=== PATIENT | female | born 1950 | race Caucasian/White ===

== ENCOUNTER 2016-09-28 05:22 | Emergency (ER) | payer OTHER, MEDICAID ==
[2016-09-28 05:30] VITALS: BP 162/88; TEMP 97.7
--- NOTE | 2016-09-28 05:39 | EDPHY ---
H & P Stated Complaint: Anxiety attack HPI/ROS: HPI CHIEF COMPLAINT: Anxiety, panic attack, Klonopin withdrawl HISTORY OF PRESENT ILLNESS: This patient very pleasant 65-year-old female significant past medical history for panic attacks and anxiety has been on Klonopin for year 1 mg dose, she has been out of the medication for 5 days in been going to worsening anxiety and panic attacks at home. She presents to the emergency room feeling very anxious and having a panic attack. She states she may be withdrawing from Klonopin as she has not had this medication in 5 days. She did try to get a refill however they told her it was too early as she is not due for refill. She tells me she may have been taking more than what she is prescribed. She now feels very anxious. She presents emergency room by private vehicle feeling very anxious and palpitations. Past Medical History: Anxiety, panic attacks, depression Past Surgical History: no recent pertinent surgery Social History: Denies daily use of drugs alcohol tobacco products Family History: Noncontributory ROS REVIEW OF SYSTEMS: A comprehensive 10 point review of systems is otherwise negative aside from elements mentioned in the history of present illness. Exam Constitutional anxious appearing,triage nursing summary reviewed, vital signs reviewed, awake/alert. Eyes normal conjunctivae and sclera, EOMI, PERRLA. HENT normal inspection, atraumatic, moist mucus membranes, no epistaxis, neck supple/ no meningismus, no raccoon eyes. Respiratory clear to auscultation bilaterally, normal breath sounds, no respiratory distress, no wheezing. Cardiovascular rate normal, regular rhythm, no murmur, no edema, distal pulses normal. Gastrointestinal soft, non-tender, no rebound, no guarding, normal bowel sounds, no distension, no pulsatile mass. Genitourinary no CVA tenderness. Musculoskeletal no midline vertebral tenderness, full range of motion, no calf swelling, no tenderness of extremities, no meningismus, good pulses, neurovascularly intact. Skin pink, warm, & dry, no rash, skin atraumatic. Neurologic awake, alert and oriented x 3, AAOx3, moves all 4 extremities equally, motor intact, sensory intact, CN II-XII intact, normal cerebellar, normal vision, normal speech. Psychiatric anxious, tearful Heme/Lymph/Immune no lymphadenopathy. Differential Diagnosis: Includes but is not limited to in a particular order, acute anxiety attack, panic attack, Klonopin withdrawal, benzo withdrawal Medical Decision Making: This patient be placed on cardiac lead to evaluate her heart rate, she will have an EKG she is not having any chest pain however does feel palpitations with anxiety, also be given 5 mg p.o. Valium. Re-evaluation: EKG interpretation by me on record in [employer] system. Impression time of EKG 6:06 a.m., this is sinus rhythm rate of 74 I do not appreciate acute ischemic changes or signs of arrhythmia. 0624: re-examination at this time this patient feels much better. She denies chest pain or shortness of breath she denies feeling any further anxious she did receive 5 mg p.o. Valium. She is requesting be discharged home. I will give her a very limited supply of Valium. She understands follow-up with her primary care doctor. Source: Patient - Personal History Current Tetanus/Diphtheria Vaccine: Yes Current Tetanus Diphtheria and Acellular Pertussis (TDAP): Yes - Medical/Surgical History Hx Asthma: No Hx Chronic Respiratory Disease: No Hx Diabetes: No Hx Cardiac Disease: No Hx Renal Disease: No Hx Cirrhosis: No Hx Alcoholism: No Hx HIV/AIDS: No Hx Splenectomy or Spleen Trauma: No Other PMH: pmh- PTSD, OCD, pre-diabetic, kidney stones - Social History Smoking Status: Never smoked Constitutional: Initial Vital Signs Temperature (C) 36.5 C 09/28/16 05:28 Heart Rate 96 09/28/16 05:28 Respiratory Rate 20 09/28/16 05:28 Blood Pressure 162/88 H 09/28/16 05:28 O2 Sat (%) 99 09/28/16 05:28 O2 Delivery Mode Room Air Allergies/Adverse Reactions: No Known Allergies Allergy (Verified 09/28/16 05:27) Home Medications: Medication Instructions Recorded Acetaminophen [Tylenol] 500 mg PO QID PRN 02/03/16 Cholecalciferol Vit D3 [Vitamin D3 2,000 units PO DAILY 02/03/16 2000 units tab (OTC)] Naproxen Na-Diphenhydramin HCl 1 each PO HS 02/03/16 [Aleve Pm Caplet] Ranitidine HCl 300 mg PO DAILY PRN 02/03/16 clonazePAM [KlonOPIN] 1 mg PO TID PRN 02/03/16 Metformin HCl 06/08/16 clonazePAM [klonoPIN (*)] 1 mg PO HS PRN #2 tab 06/08/16 Diazepam [Valium 5 MG (*)] 5 mg PO BID PRN #7 tab 09/28/16 Medical Decision Making - Data Points Medications Given: Discontinued Medications Diazepam (Valium) 5 mg PO EDNOW ONE Stop: 09/28/16 05:47 Last Admin: 09/28/16 05:53 Dose: 5 mg Departure - Departure Disposition: Home, Routine, Self-Care Clinical Impression: Anxiety Condition: Fair Instructions: Anxiety (ED) Additional Instructions: 1. Please follow up with your primary care doctor. 2. Return to the emergency room if you have any worsening symptoms questions or concerns. 3. I have written you very limited supply of Valium. Do not take more than is prescribed do not mix this with her Klonopin. Once again Klonopin filled please stop taking the Valium Referrals: Yong Squires MD [Primary Care Provider] - As per Instructions Prescriptions: Diazepam [Valium 5 MG (*)] 5 mg PO BID PRN #7 tab PRN Reason: Spasms
[2016-09-28] MEDS ORDERED: DIAZEPAM 5 MG TAB PO ONE (05:46)
--- NOTE | 2016-09-28 06:10 | CPEKG ---
Heart Rate: 74 RR Interval: 811 P-R Interval: 176 QRSD Interval: 92 QT Interval: 372 QTC Interval: 413 P [place]: 40 QRS [place]: 25 T Wave [place]: 16 EKG Severity - BORDERLINE ECG - EKG Impression: SINUS RHYTHM EKG Impression: BORDERLINE T WAVE ABNORMALITIES Electronically Signed By: Babatunde Moreno 29-Sep-2016 12:17:35
[2016-09-28 06:42] VITALS: PULSE 82; RESP 16; O2SAT 95
== END 2016-09-28 06:30 | disposition home or self-care (01) ==
DX: F41.9 Anxiety disorder, unspecified (principal)

== ENCOUNTER 2016-11-12 09:19 | Emergency (ER) | payer OTHER, MEDICAID ==
[2016-11-12 09:26] VITALS: BP 142/78; PULSE 79; RESP 16; TEMP 97.5; O2SAT 95
--- NOTE | 2016-11-12 09:46 | EDPHY ---
H & P Stated Complaint: stomach cramps, anxiety, headache, nausea x 2-3 weeks Time Seen by Provider: 11/12/16 09:27 HPI/ROS: CHIEF COMPLAINT: "I want to be tested because I think neighbors are poisoning me" HISTORY OF PRESENT ILLNESS: 66-year-old female history of bipolar disorder arrives via private vehicle requesting to be tested for poisons believing that her neighbors are poisoning her. She describes her current living situation, states that the neighbors [place] the [place] are [place] marijuana, she has been in contact with the [employer] [employer] [facility] about this. States that for several months she has been experiencing intermittent abdominal cramping, intermittent nausea, intermittent headaches. Currently asymptomatic. PRIMARY CARE PROVIDER: Dr. Yong Squires REVIEW OF SYSTEMS: A ten point review of systems was performed and is negative with the exception of the items mentioned in the HPI PAST MEDICAL & SURGICAL HISTORY: Bipolar disorder SOCIAL HISTORY: denies alcohol drug or tobacco use PHYSICAL EXAM (Prior to examination, patient consented to physical exam, hands were washed and my usual and customary physical exam procedures followed) 1) GENERAL: Well-developed, well-nourished, alert and oriented. Appears to be in no acute distress. 2) HEAD: Normocephalic, atraumatic 3) HEENT: Pupils equal, round, reactive to light bilaterally. Sclera anicteric. Nasopharynx, oropharynx, clear, no lesions. Ears bilaterally with normal tympanic membranes. 4) NECK: Full range of motion, no meningeal signs. 5) LUNGS: Clear auscultation bilaterally, no wheezes, no rhonchi, no retractions. 6) HEART: Regular rate and rhythm, no murmur, no heave, no gallop. 7) ABDOMEN: No guarding, no rebound, no focal tenderness, negative McBurney's, negative Mondragon's, negative Rovsing's, negative peritoneal sign, 8) MUSCULOSKELETAL: No peripheral edema or discoloration. 9) BACK: No CVA tenderness. 10) SKIN: No rash, no petechiae. 11) Psychiatric: Patient is oriented X 3, there is no agitation. DIFFERENTIAL DIAGNOSIS: no particular include but limited to intoxicants use, bipolar disorder, wilfredo - Personal History Current Tetanus/Diphtheria Vaccine: Unsure Current Tetanus Diphtheria and Acellular Pertussis (TDAP): Unsure - Medical/Surgical History Hx Asthma: No Hx Chronic Respiratory Disease: No Hx Diabetes: No Hx Cardiac Disease: No Hx Renal Disease: No Hx Cirrhosis: No Hx Alcoholism: No Hx HIV/AIDS: No Hx Splenectomy or Spleen Trauma: No Other PMH: pmh- PTSD, OCD, kidney stones. (not diabetic--takes metformin for : "weight loss") - Social History Smoking Status: Never smoked Constitutional: Initial Vital Signs Temperature (C) 36.4 C 11/12/16 09:24 Heart Rate 79 11/12/16 09:24 Respiratory Rate 16 11/12/16 09:24 Blood Pressure 142/78 H 11/12/16 09:24 O2 Sat (%) 95 11/12/16 09:24 O2 Delivery Mode Room Air Allergies/Adverse Reactions: No Known Allergies Allergy (Verified 09/28/16 05:27) Home Medications: Medication Instructions Recorded Acetaminophen [Tylenol] 500 mg PO QID PRN 02/03/16 Cholecalciferol Vit D3 [Vitamin D3 2,000 units PO DAILY 02/03/16 2000 units tab (OTC)] Naproxen Sod/Diphenhydramine 1 each PO HS 02/03/16 [Aleve Pm Caplet] Ranitidine HCl 300 mg PO DAILY PRN 02/03/16 Metformin HCl 06/08/16 Diazepam [Valium 5 MG (*)] 5 mg PO BID PRN #7 tab 09/28/16 Medical Decision Making ED Course/Re-evaluation: 10:00 a.m.: I have discussed with the patient her urine toxicology results which she requested. Positive for opiates and benzodiazepines. She denies suicidal homicidal ideation, she is alert oriented person place time events. I do not think the patient is in immediate danger to herself and/or others. Do not think she meets criteria for mental health hold. She has an appointment with her primary care provider on Monday (today is Monday). I have emphasized with her ongoing life situation, recommend that if she does develop concerns for her safety, if she has thoughts of hurting herself or others, she needs to call 911 immediately. She is agreeable with this plan. - Data Points Laboratory Results: 11/12/16 09:51 Urine Opiates Screen NON-NEGATIVE H (NEGATIVE) Urine Barbiturates NEGATIVE (NEGATIVE) Ur Phencyclidine Scrn NEGATIVE (NEGATIVE) Ur Amphetamine Screen NEGATIVE (NEGATIVE) U Benzodiazepines Scrn NON-NEGATIVE H (NEGATIVE) Urine Cocaine Screen NEGATIVE (NEGATIVE) U Marijuana (THC) Screen NEGATIVE (NEGATIVE) Departure - Departure Disposition: Home, Routine, Self-Care Clinical Impression: Bipolar disorder Qualifiers: Active/Remission status: remission status unspecified Qualified Code(s): F31.9 - Bipolar disorder, unspecified Condition: Good Instructions: Bipolar Disorder (ED) Additional Instructions: We will call you with the results of your urine toxicology testing. Call 911 if you develop thoughts of hurting herself or others or if you feel you are in danger Referrals: Yong Squires MD [Primary Care Provider] - 11/15/16 (Keep your appointment with Dr. Yong Squires this Monday)
== END 2016-11-12 10:14 | disposition home or self-care (01) ==
DX: F31.9 Bipolar disorder, unspecified (principal)
CPT/HCPCS: 80305

== ENCOUNTER 2016-11-16 11:49 | Emergency (ER) | payer OTHER, MEDICAID ==
[2016-11-16 11:55] VITALS: TEMP 97.5
[2016-11-16 13:14] VITALS: PULSE 78; RESP 16
--- NOTE | 2016-11-16 13:56 | EDPHY ---
H & P Stated Complaint: SEEN SAT FOR SAME/BLURRY VISION/OFF BALANCE(THINKS SHE IS BEING DRUGGED) Time Seen by Provider: 11/16/16 12:24 HPI/ROS: CHIEF COMPLAINT: Blurred vision, fell yesterday, think she is being drugged HISTORY OF PRESENT ILLNESS: This is a 66-year-old female with a history of manic depression who is currently taking Valium after recently weaning off of Klonopin. She presents to the emergency department for the 2nd time within 1 week complaining that the neighbors across the [place] are drugging her. A urine drug screen was done at her last visit and it was positive for benzodiazepines and opiates. She does not take opiates and is insistent about this. She saw her primary care physician on Monday but was feeling relatively well on that day so no further evaluation was done. She comes in today because she states that her vision was blurred this morning, making it difficult for her to read a menu in a restaurant. REVIEW OF SYSTEMS: A ten point review of systems was performed and is negative with the exception of the items mentioned in the HPI. Source: Patient - Personal History Current Tetanus/Diphtheria Vaccine: Yes - Medical/Surgical History Hx Asthma: No Hx Chronic Respiratory Disease: No Hx Diabetes: No Hx Cardiac Disease: No Hx Renal Disease: No Hx Cirrhosis: No Hx Alcoholism: No Hx HIV/AIDS: No Hx Splenectomy or Spleen Trauma: No Other PMH: pmh- PTSD, OCD, kidney stones. (not diabetic--takes metformin for : "weight loss") - Social History Smoking Status: Never smoked Additional Social History: Lives alone in an apartment. Denies the use of alcohol, cigarettes, or illicit drugs. - Physical Exam Exam: General Appearance: Alert. Vital signs reviewed. Eyes: Pupils equal and round, no conjunctival injection, no discharge. Anicteric. ENT, Mouth: Mucous membranes are moist, no oropharyngeal erythema or edema. Neck: No lymphadenopathy, supple. Respiratory: Lungs are clear to auscultation; no wheezes, rales, or rhonchi. Cardiovascular: Regular rate and rhythm; no murmur, rub, or gallop. Gastrointestinal: Abdomen is soft and nontender. Skin: Warm and dry, no rashes on exposed skin, normal color. Extremities: No lower extremity edema, no calf tenderness or swelling. Neurological: Alert and oriented. Moving all four extremities easily and equally. Cranial nerves II through XII are examined and are intact (visual acuity reviewed). Strength is 5 over 5 bilaterally with testing of all major motor groups. Psychiatric: Somewhat pressured tangential speech. Constitutional: Initial Vital Signs Temperature (C) 36.4 C 11/16/16 11:53 Heart Rate 84 11/16/16 11:53 Respiratory Rate 20 11/16/16 11:53 Blood Pressure 128/75 H 11/16/16 11:53 O2 Sat (%) 96 11/16/16 11:53 O2 Delivery Mode Room Air Allergies/Adverse Reactions: No Known Allergies Allergy (Verified 11/16/16 11:52) Home Medications: Medication Instructions Recorded Acetaminophen [Tylenol] 500 mg PO QID PRN 02/03/16 Cholecalciferol Vit D3 [Vitamin D3 2,000 units PO DAILY 02/03/16 2000 units tab (OTC)] Naproxen Sod/Diphenhydramine 1 each PO HS 02/03/16 [Aleve Pm Caplet] Ranitidine HCl 300 mg PO DAILY PRN 02/03/16 Metformin HCl 06/08/16 Diazepam [Valium 5 MG (*)] 5 mg PO BID PRN #7 tab 09/28/16 KLONOPIN 11/16/16 Medical Decision Making ED Course/Re-evaluation: 2nd emergency department visit for this patient has a history of PTSD. She complains of blurred vision and balance difficulty. Her gait is normal. Her neurologic exam is within normal limits. I have not found objective evidence of a vision problem. Her major complaint is that she is being poisoned by neighbors in her apartment building. She had this same complaint at an earlier visit. She tells me that she has seen her primary care provider. She has an appointment with her psychiatrist and her primary care provider within the week. I do not think that she has a physical problem that is causing her to be off balance or have blurred vision. During her previous visit she had a urine drug screen done, at her request, and it was positive for benzodiazepines and opiates. She is prescribed benzodiazepines. She is very concerned about the positive opiate test is adamant about being retested. I have explained to her that opiates can be present in the urine for 3-4 days and that today's test will not really give any helpful information. However, she cannot be dissuaded. Urine drug screen was done again and is again positive for opiates and benzodiazepines. She is adamant that this is the result of poisoning by her neighbors. I think that she is slightly manic and paranoid but do not feel that she qualifies for a 72 hour hold; I do not think that she is presently a danger to herself or to others. I have strongly encouraged her to see her psychiatrist. Differential Diagnosis: I considered a differential diagnosis that includes but is not limited to use of illicit substances or medications prescribed for someone other than the patient, wilfredo, paranoia, and exacerbation of bipolar disease. Departure - Departure Disposition: Home, Routine, Self-Care Clinical Impression: Positive urine drug screen Condition: Good Instructions: Bipolar Disorder (ED) Additional Instructions: As you know, your urine drug screen today is positive for benzodiazepines and opiates. As we discussed, opiate skin remain in the urine for 3 or 4 days. I do not have an explanation for these findings. I recommend that you follow up with Dr. Squires and your psychiatrist/therapist. Referrals: Yong Squires MD [Primary Care Provider] - As per Instructions
[2016-11-16 14:51] VITALS: BP 134/76; O2SAT 98
== END 2016-11-16 14:54 | disposition home or self-care (01) ==
DX: R82.5 Elevated urine levels of drugs, medicaments and biological substances (principal)
CPT/HCPCS: 80305

== ENCOUNTER 2017-10-18 15:29 | Emergency (ER) | payer OTHER, MEDICAID ==
[2017-10-18 15:46] VITALS: BP 121/69; PULSE 88; RESP 18; TEMP 98.1; O2SAT 94
--- NOTE | 2017-10-18 16:09 | EDPHY ---
H & P Time Seen by Provider: 10/18/17 15:59 HPI/ROS: CHIEF COMPLAINT: Left elbow pain HISTORY OF PRESENT ILLNESS: The patient is a 67-year-old female who presents emergency department with left elbow pain. Yesterday she was at the gas station when she tripped over the hose. She is not sure how she landed. She now has significant pain in her left elbow. She states she has some numbness that extends down to her left hand. She denies any shoulder pain. She did not strike her head or lose consciousness. The patient went to [facility] yesterday via ambulance. She states she had a difficult experience there. She is given pain medication x-ray was performed. However the told her that the x-ray"was not good."They discharged her home with Percocet and no support of her elbow. REVIEW OF SYSTEMS: My complete review of systems is negative except as mentioned in the HPI. Past Medical/Surgical History: Includes PTSD, OCD, kidney stones Social history: The patient does not smoke Smoking Status: Never smoked Physical Exam: 36.7, 121/69, 88, 18, 94% on room air General Appearance: Alert and no distress. Head: Pupils equal. Normal. No visible signs of trauma Neck: No spinal tenderness. Nexus negative. Respiratory: No respiratory distress. Cardiac: regular rate and rhythm. Extremities: The patient has noted swelling around her left elbow. There is diffuse tenderness around the elbow but this seems to be most focal over the radial head. She is neurovascular intact distally. Skin: No rashes or lesions. Neuro: Alert. Normal mood and affect. Constitutional: Initial Vital Signs Temperature (C) 36.7 C 10/18/17 15:44 Heart Rate 88 10/18/17 15:44 Respiratory Rate 18 10/18/17 15:44 Blood Pressure 121/69 H 10/18/17 15:44 O2 Sat (%) 94 10/18/17 15:44 O2 Delivery Mode Room Air Allergies/Adverse Reactions: No Known Allergies Allergy (Verified 10/18/17 15:43) Home Medications: Medication Instructions Recorded Acetaminophen [Tylenol] 500 mg PO QID PRN 02/03/16 Cholecalciferol Vit D3 [Vitamin D3 2,000 units PO DAILY 02/03/16 2000 units tab (OTC)] Ranitidine HCl 300 mg PO DAILY PRN 02/03/16 KLONOPIN 11/16/16 oxyCODONE/APAP 5/325 [Percocet 1 - 2 tab PO Q4PRN PRN #11 tab 10/18/17 5/325 (*)] Medical Decision Making - Diagnostics Imaging Results: Imaging Impressions Elbow X-Ray 10/18/17 16:19 Impression: 1. Chip or avulsion fracture along the lateral distal humeral epicondyle. This could be associated with the lateral collateral ligament insertion. ED Course/Re-evaluation: In the emergency department I discussed possible etiologies with the patient. I answered all her questions. An x-ray of her left elbow was ordered. Left elbow x-ray: The patient has the avulsion fracture along the lateral distal humeral epicondyle. This could be associated with the lateral collateral ligament insertion. I discussed the results with the patient. I answered all her questions. She was placed in a shoulder sling. She is given follow-up with Orthopedics. She states she is a [facility] patient. I informed that she could follow up with our orthopedic surgeon but that her insurance may require her to follow up with [facility] orthopedist. She is given warnings prior to leaving. She will return with worsening symptoms. Differential Diagnosis: My differential includes but is not limited to fracture, dislocation, sprain, strain, contusion, compartment syndrome Departure - Departure Disposition: Home, Routine, Self-Care Clinical Impression: Elbow fracture, left Qualifiers: Encounter type: initial encounter Fracture type: closed Qualified Code(s): S42.402A - Unspecified fracture of lower end of left humerus, initial encounter for closed fracture Condition: Good Instructions: Elbow Fracture (ED) Additional Instructions: You have a small avulsion fracture on the lateral aspect of your humeral epicondyle. Use your sling. You need close follow-up with Orthopedics. Referrals: Roel Castañeda MD [Medical Doctor] - 5-7 days, call for appt. Prescriptions: oxyCODONE/APAP 5/325 [Percocet 5/325 (*)] 1 - 2 tab PO Q4PRN PRN #11 tab PRN Reason: For Moderate To Severe Pain
[2017-10-18] MEDS ORDERED: IBUPROFEN 600 MG TAB PO ONE (17:33)
== END 2017-10-18 17:35 | disposition home or self-care (01) ==
DX: S42.432A Displaced fracture (avulsion) of lateral epicondyle of left humerus, initial encounter for closed fracture (principal); W18.40XA Slipping, tripping and stumbling without falling, unspecified, initial encounter
CPT/HCPCS: 73080; 99283; A4565

== ENCOUNTER 2017-11-03 13:35 | Emergency (ER) | payer OTHER, MEDICAID ==
--- NOTE | 2017-11-03 13:37 | EDPHY ---
H & P Source: Patient, Police, Old records - Medical/Surgical History Hx Asthma: No Hx Chronic Respiratory Disease: No Hx Diabetes: No Hx Cardiac Disease: No Hx Renal Disease: No Hx Cirrhosis: No Hx Alcoholism: No Hx HIV/AIDS: No Hx Splenectomy or Spleen Trauma: No Other PMH: pmh- PTSD, OCD, kidney stones. (not diabetic--takes metformin for : "weight loss") - Social History Smoking Status: Never smoked Time Seen by Provider: 11/03/17 13:36 HPI/ROS: HPI: This is a 67-year-old female who presents with Chief Complaint: Manic episode Location: psych Quality: Manic episode Duration: Unknown Signs and Symptoms: no auditory and visual command hallucinations, no suicidal ideation with a plan, no homicidal ideation, + paranoid Timing: Acute on chronic Severity: Moderate to severe Context: Patient has a history of bipolar disorder presents via police on M1 hold as they were called to the local hotel for patient acting delusional, paranoid and erratically. Patient believes that people are out to get her. She admits that she has not taking her Tegretol unknown dose in greater than 2 weeks as she"ran out" she denies homicidal ideation, suicidal ideation, hallucinations. She reports that she has been spending money excessively. Denies illegal drug use. Please reports that they responded from the hotel who called them after she refused to leave at check out. Patient was talking to her hand and miss identifying herself. Patient believes that she had been at a hotel 10 days but was actually 2 days. She reports that she took 2 bottles of Motrin and 1 bottle of Aleve. She reports that she"slept for long time." Dog that was with her the hotel sent to the [facility]. Modifying Factors: None Comment: ROS: see HPI Constitutional: No fever, no chills, no weight loss Eyes: No blurred vision Respiratory: No shortness of breath, no cough Cardiovascular: No chest pain Gastrointestinal: No nausea, no vomiting, no diarrhea Genitourinary: No dysuria Extremities: No myalgias Neurologic: No weakness, no numbness Skin: No rashes Hematologic: No bruising, no bleeding MEDICAL/SURGICAL/SOCIAL HISTORY: Medical history: pmh- bipolar disorder mixed type; PTSD, OCD, kidney stones (not diabetic--takes metformin for :"weight loss") Surgical history: Denies Social history: Disable. CONSTITUTIONAL: Well-appearing adult white female; cooperative and talkative; awake and alert, no obvious distress HEENT: Atraumatic and normocephalic, PERRL, EOMI. Tympanic membranes clear. Oropharynx clear, no exudate and moist pink mucosa. Airway patent. No lymphadenopathy. No meningismus. Cardiovascular: Normal S1/S2, regular rate, regular rhythm, without murmur rub or gallop. PULMONARY/CHEST: Symmetrical and nontender. Clear to auscultation bilaterally. Good air movement. No accessory muscle usage. ABDOMEN: Soft, nondistended, nontender, no rebound, no guarding, no peritoneal signs, no masses or organomegaly. No CVAT. EXTREMITIES: 2/2 pulses, strength 5/5, no deformities, no clubbing, no cyanosis or edema. NEUROLOGICAL: no focal neuro deficits. GCS 15. SKIN: Warm and dry, no erythema. no rash. Good capillary refill. PSYCH: Poor eye contact, + flight of ideas, tangential disorganized thought process, poor insight and judgment, no auditory and visual command hallucinations, no suicidal ideation with a plan, no homicidal ideation, + paranoid ([place]) Constitutional: Initial Vital Signs Temperature (C) 36.7 C 11/03/17 13:56 Heart Rate 97 11/03/17 13:56 Respiratory Rate 18 11/03/17 13:56 Blood Pressure 141/93 H 11/03/17 13:56 O2 Sat (%) 94 11/03/17 13:56 O2 Delivery Mode Room Air Allergies/Adverse Reactions: No Known Allergies Allergy (Verified 10/18/17 15:43) Home Medications: Medication Instructions Recorded Ranitidine HCl 300 mg PO BID PRN 02/03/16 Aspirin EC [Aspirin EC 81 mg (*)] 81 mg PO DAILY 11/03/17 Naproxen Sod/Diphenhydramine 1 each PO HS PRN 11/03/17 [Aleve Pm Caplet] Ziprasidone HCl [Geodon 40MG (*)] 80 mg PO HS 11/03/17 metFORMIN HCL [Glucophage 500 mg 250 mg PO BIDMEAL 11/03/17 (*)] Medical Decision Making ED Course/Re-evaluation: 1345: Agree with M1 hold as patient is gravely disabled. Start Tegretol 200 mg twice daily. Labs and UDS ordered. 1500: Reviewed labs; slightly elevated sodium noted; awaiting urine sample. 1740: End of Shift: Signed over to Dr. Bradley pending urine sample, medical clearance, mental health evaluation and disposition. Patient would greatly benefit from inpatient psychiatric treatment. This patient was seen under the supervision of my primary supervising physician. I evaluated care for this patient independently. Discussed this patient with Dr. Bradley who did not see the patient. (Jayde Johnston) I assumed care of this patient at 3:00 p.m.. She is on an M1 hold for acute wilfredo. Not taking Tegretol for over 2 weeks. Urine toxicology screen is pending. 4 p.m.-medically cleared for mental health evaluation. 9pm-mental health is looking for inpatient disposition. Signed over to Dr. Chase at 9:00 p.m. (Jaci Bradley) 2225: Patient on M1 hold for acute wilfredo. Pending placement Signed over to Dr. Batista. (Valdemar Chase) 10:30 p.m.- The patient has been accepted to [facility] by Dr. Stark. I have completed the EMTALA form. (Mirna Batista) Differential Diagnosis: Differential diagnosis includes but is not limited to schizophrenia, bipolar disorder, manic episode, delusional, functional in situational depression. (Jayde Johnston) - Data Points Laboratory Results: Laboratory Results 11/03/17 13:50 11/03/17 13:50 11/03/17 11/03/17 11/03/17 15:25 13:50 13:50 WBC 10.83 10^3/uL H 10^3/uL (3.80-9.50) RBC 4.86 10^6/uL 10^6/uL (4.18-5.33) Hgb 13.3 g/dL g/dL (12.6-16.3) Hct 42.0 % % (38.0-47.0) MCV 86.4 fL fL (81.5-99.8) MCH 27.4 pg L pg (27.9-34.1) MCHC 31.7 g/dL L g/dL (32.4-36.7) RDW 14.3 % % (11.5-15.2) Plt Count 314 10^3/uL 10^3/uL (150-400) MPV 9.0 fL fL (8.7-11.7) Neut % (Auto) 89.0 % H % (39.3-74.2) Lymph % (Auto) 7.3 % L % (15.0-45.0) [place] % (Auto) 3.0 % L % (4.5-13.0) Eos % (Auto) 0.0 % L % (0.6-7.6) Baso % (Auto) 0.3 % % (0.3-1.7) Nucleat RBC Rel Count 0.0 % % (0.0-0.2) Absolute Neuts (auto) 9.65 10^3/uL H 10^3/uL (1.70-6.50) Absolute Lymphs (auto) 0.79 10^3/uL L 10^3/uL (1.00-3.00) Absolute Monos (auto) 0.32 10^3/uL 10^3/uL (0.30-0.80) Absolute Eos (auto) 0.00 10^3/uL L 10^3/uL (0.03-0.40) Absolute Basos (auto) 0.03 10^3/uL 10^3/uL (0.02-0.10) Absolute Nucleated RBC 0.00 10^3/uL 10^3/uL (0-0.01) Immature Gran % 0.4 % % (0.0-1.1) Immature Gran # 0.04 10^3/uL 10^3/uL (0.00-0.10) Sodium 152 mEq/L H mEq/L (135-145) Potassium 3.7 mEq/L mEq/L (3.5-5.2) Chloride 112 mEq/L H mEq/L (97-110) Carbon Dioxide 21 mEq/l L mEq/l (22-31) Anion Gap 19 mEq/L H mEq/L (8-16) BUN 22 mg/dL mg/dL (7-23) Creatinine 0.9 mg/dL mg/dL (0.6-1.0) Estimated GFR > 60 Glucose 116 mg/dL H mg/dL (70-100) Calcium 10.1 mg/dL mg/dL (8.5-10.4) Urine Opiates Screen NEGATIVE (NEGATIVE) Urine Barbiturates NEGATIVE (NEGATIVE) Ur Phencyclidine Scrn NEGATIVE (NEGATIVE) Ur Amphetamine Screen NEGATIVE (NEGATIVE) U Benzodiazepines Scrn NEGATIVE (NEGATIVE) Urine Cocaine Screen NEGATIVE (NEGATIVE) U Marijuana (THC) Screen NEGATIVE (NEGATIVE) Ethyl Alcohol < 10 mg/dL mg/dL (0-10) Medications Given: Carbamazepine (Tegretol) 200 mg PO BID BIJAN Stop: 05/02/18 13:59 Last Admin: 11/03/17 22:11 Dose: 200 mg Discontinued Medications Diazepam (Valium) 5 mg PO EDNOW STA Stop: 11/03/17 21:51 Last Admin: 11/03/17 22:11 Dose: 5 mg Ranitidine HCl (Zantac) 300 mg PO EDNOW ONE Stop: 11/03/17 22:01 Last Admin: 11/03/17 22:11 Dose: 300 mg Departure - Departure Disposition: Other Psych, Not [place] Clinical Impression: Bipolar affective, manic, severe Condition: Fair Referrals: ANTONIO GONZALEZ [Primary Care Provider] - As per Instructions
[2017-11-03 14:02] LABS: PLATELET COUNT 314 10^3/uL (150-400)
[2017-11-03] MEDS: carBAMazepine 200 MG TAB PO SCH ×4 (15:03→23:49)
--- NOTE | 2017-11-03 16:59 | ASMTCMCOM ---
CM Note CM Note Notes: Pt was transported to the Emergency Department via [place] [employer] on an M1 hold today. Spoke with ANTON Mosley regarding pt and pt's dog. Per Dimitri, the pt claims her dog is a "service animal" and is needed for emotional support. Dimitri was unable to locate any paperwork indicating that the dog is indeed a service animal. Pt states that the "[employer]" issued the service paperwork. Per Dimitri, pt is currently delusional and is unable to care for herself or her dog at this time. The pt is homeless and has been staying at a local hotel. Given that the hospital staff were unable to verify the specific services provided by the dog and/or the necessary paperwork - the dog, Sheila, waldemar segal, has been temporarily placed in the care of the [place] [employer] per protocol. This CM called [facility] to verify the location and well being of Sheila. Spoke with Ashly on the Behavior and Health Team. Per Ashly, they have Sheila and will continue to provide care for him until 11/07/17. As of 11/07/17, Sheila will become the property of the [employer], if the dog has not been claimed or picked up by then. Per Ashly, the pt can provide the name and phone number of a friend to release the dog to until she is out of the hospital. CM phone number provided to Ashly for any further questions or concerns. Updates provided to [facility] and ANTON Mosley. [employer]ologneitz Jacobson #[id number] with the [place] [employer] took the dog to the [place] [employer]. Reference case # [id number]. CM available for any further issues or concerns. Date Signed: 11/03/2017 04:58 PM Electronically Signed By:Linda Dejesus RN
[2017-11-03] MEDS ORDERED: DIAZEPAM 5 MG TAB PO STA (21:50)
[2017-11-03] MEDS ORDERED: RANITIDINE SYRUP 15 MG/1 ML UDSYR PO STA (21:50)
[2017-11-03] MEDS ORDERED: RANITIDINE HCL 150 MG/10 ML UDCUP PO ONE (22:00)
[2017-11-03 23:43] VITALS: TEMP 97.9
[2017-11-04 01:21] VITALS: BP 139/87; PULSE 85; RESP 16; O2SAT 94
== END 2017-11-04 01:17 ==
LOC: EDUNIT#
DX: F31.13 Bipolar disorder, current episode manic without psychotic features, severe (principal); Z79.82 Long term (current) use of aspirin
CPT/HCPCS: 80305; G0480

== ENCOUNTER 2018-08-26 02:55 | Emergency (ER) | payer OTHER, MEDICAID ==
[2018-08-26] MEDS ORDERED: NS 1,000 ML IV ONE (03:16)
[2018-08-26] MEDS ORDERED: KETOROLAC 15 MG/1 ML SDV IVP ONE (03:16)
[2018-08-26] MEDS ORDERED: ONDANSETRON 4 MG/2 ML VIAL IVP ONE ×2 (03:16→03:47)
--- NOTE | 2018-08-26 03:17 | EDPHY ---
H & P Stated Complaint: left flank pain Time Seen by Provider: 08/26/18 03:13 HPI/ROS: Chief Complaint: Flank pain HPI: 67-year-old woman woke this morning with sudden onset of left flank pain. Patient's pain is a 10/10. Initially thought it might be urinary tract infection but now feels like prior kidney stones. Has had some nausea vomiting. No fevers or chills. No abdominal pain. No chest pain or shortness of breath. ROS: 10 systems were reviewed and were negative except those elements noted in the HPI. PMH: Kidney stones Social History: No smoking, no alcohol, no recreational drug use Family History: non-contributory Physical Exam: Gen: Awake, Alert, uncomfortable appearing HEENT: Nose: no rhinorrhea Eyes: PERRLA, EOMI Mouth: Moist mucosa Neck: Supple, no JVD Chest: nontender, lungs clear to auscultation Heart: S1, S2 normal, no murmur Abd: Soft, non-tender, no guarding Back: no CVA tenderness, no midline tenderness Ext: no edema, non-tender Skin: no rash Neuro: CN II-XII intact, Sensation grossly intact, Strength 5/5 in bilateral upper and lower extremities - Personal History Current Tetanus/Diphtheria Vaccine: Yes Current Tetanus Diphtheria and Acellular Pertussis (TDAP): Yes - Medical/Surgical History Hx Asthma: No Hx Chronic Respiratory Disease: No Hx Diabetes: No Hx Cardiac Disease: No Hx Renal Disease: No Hx Cirrhosis: No Hx Alcoholism: No Hx HIV/AIDS: No Hx Splenectomy or Spleen Trauma: No Other PMH: pmh- PTSD, OCD, kidney stones - Social History Smoking Status: Never smoked Constitutional: Initial Vital Signs Temperature (C) 36.5 C 08/26/18 03:13 Heart Rate 80 08/26/18 03:13 Respiratory Rate 18 08/26/18 03:13 Blood Pressure 157/87 H 08/26/18 03:13 O2 Sat (%) 98 08/26/18 03:13 O2 Delivery Mode Room Air Allergies/Adverse Reactions: No Known Allergies Allergy (Verified 10/18/17 15:43) Home Medications: Medication Instructions Recorded Ranitidine HCl 300 mg PO BID PRN 02/03/16 Aspirin EC [Aspirin EC 81 mg (*)] 81 mg PO DAILY 03/30/18 Valium 10 MG (*) 08/26/18 Medical Decision Making - Diagnostics Imaging Results: CT scan shows a 6 x 4 x 3 mm left UVJ stone about to enter the bladder with hydroureter and hydronephrosis. There is diverticulosis without diverticulitis. Study interpreted by Dr. Young. Imaging: Discussed imaging studies w/ call centre supervisor Radiologist ED Course/Re-evaluation: CT scan results noted. Appears to patient is about a minute we passed stone. Pain is now resolved. No nausea or vomiting. Soft benign abdomen. Will discharge with follow-up with primary care physician. - Data Points Laboratory Results: Laboratory Results 08/26/18 03:30 08/26/18 03:30 08/26/18 08/26/18 08/26/18 03:30 03:30 03:25 WBC 8.54 10^3/uL 10^3/uL (3.80-9.50) RBC 5.07 10^6/uL 10^6/uL (4.18-5.33) Hgb 14.3 g/dL g/dL (12.6-16.3) Hct 43.8 % % (38.0-47.0) MCV 86.4 fL fL (81.5-99.8) MCH 28.2 pg pg (27.9-34.1) MCHC 32.6 g/dL g/dL (32.4-36.7) RDW 13.7 % % (11.5-15.2) Plt Count 285 10^3/uL 10^3/uL (150-400) MPV 9.2 fL fL (8.7-11.7) Neut % (Auto) 51.8 % % (39.3-74.2) Lymph % (Auto) 38.5 % % (15.0-45.0) [place] % (Auto) 7.1 % % (4.5-13.0) Eos % (Auto) 1.8 % % (0.6-7.6) Baso % (Auto) 0.6 % % (0.3-1.7) Nucleat RBC Rel Count 0.0 % % (0.0-0.2) Absolute Neuts (auto) 4.42 10^3/uL 10^3/uL (1.70-6.50) Absolute Lymphs (auto) 3.29 10^3/uL H 10^3/uL (1.00-3.00) Absolute Monos (auto) 0.61 10^3/uL 10^3/uL (0.30-0.80) Absolute Eos (auto) 0.15 10^3/uL 10^3/uL (0.03-0.40) Absolute Basos (auto) 0.05 10^3/uL 10^3/uL (0.02-0.10) Absolute Nucleated RBC 0.00 10^3/uL 10^3/uL (0-0.01) Immature Gran % 0.2 % % (0.0-1.1) Immature Gran # 0.02 10^3/uL 10^3/uL (0.00-0.10) Sodium 141 mEq/L mEq/L (135-145) Potassium 4.3 mEq/L mEq/L (3.5-5.2) Chloride 110 mEq/L mEq/L (97-110) Carbon Dioxide 22 mEq/l mEq/l (22-31) Anion Gap 9 mEq/L mEq/L (6-14) BUN 23 mg/dL mg/dL (7-23) Creatinine 0.8 mg/dL mg/dL (0.6-1.0) Estimated GFR > 60 Glucose 108 mg/dL H mg/dL (70-100) Calcium 9.9 mg/dL mg/dL (8.5-10.4) Urine Color YELLOW Urine Appearance MODERATELY TURBID Urine pH 5.0 (5.0-7.5) Ur Specific [place] 1.028 (1.002-1.030) Urine Protein NEGATIVE (NEGATIVE) Urine Ketones NEGATIVE (NEGATIVE) Urine Blood NEGATIVE (NEGATIVE) Urine Nitrate NEGATIVE (NEGATIVE) Urine Bilirubin NEGATIVE (NEGATIVE) Urine Urobilinogen NEGATIVE EU EU (0.2-1.0) Ur Leukocyte Esterase 1+ H (NEGATIVE) Urine RBC 15-25 /hpf H /hpf (0-3) Urine WBC 3-5 /hpf H /hpf (0-3) Ur Epithelial Cells TRACE /lpf /lpf (NONE-1+) Calcium Oxalate Crystal PRESENT /hpf /hpf (NONE-1+) Hyaline Casts 1-5 /lpf /lpf (0-1) Urine Mucus 3+ /lpf H /lpf (NONE-1+) Urine Glucose NEGATIVE (NEGATIVE) Medications Given: Discontinued Medications Hydromorphone HCl (Dilaudid) 0.5 mg IVP EDNOW ONE Stop: 08/26/18 03:48 Last Admin: 08/26/18 03:53 Dose: 0.5 mg Sodium Chloride (Ns) 1,000 mls @ 0 mls/hr IV ONCE ONE; Wide Open PRN Reason: Protocol Stop: 08/26/18 03:17 Last Admin: 08/26/18 03:28 Dose: 1,000 mls Ketorolac Tromethamine (Toradol) 15 mg IVP EDNOW ONE Stop: 08/26/18 03:17 Last Admin: 08/26/18 03:28 Dose: 15 mg Ondansetron HCl (Zofran) 4 mg IVP EDNOW ONE Stop: 08/26/18 03:17 Last Admin: 08/26/18 03:28 Dose: 4 mg Ondansetron HCl (Zofran) 4 mg IVP EDNOW ONE Stop: 08/26/18 03:48 Last Admin: 08/26/18 03:53 Dose: 4 mg Departure - Departure Disposition: Home, Routine, Self-Care Clinical Impression: Kidney stone Condition: Good Instructions: Gallstones (ED), Kidney Stones (ED) Additional Instructions: Take ibuprofen, 600 mg every 8 hr. You may alternate with acetaminophen, 1000 mg every 8 hr. Follow up with Urology in 3-4 days if symptoms are not improved. The CT scan did show that you have stones in your gallbladder. These are not contributing to your symptoms today but you should have these followed up by your primary care physician. Return emergency department for worsening pain, uncontrolled nausea vomiting, fevers, chills, or any other concerns. Referrals: NONE *PRIMARY CARE P,. [Primary Care Provider] - As per Instructions [facility] ,. [Edm Groups for Call Sched] - As per Instructions
[2018-08-26 03:40] LABS: PLATELET COUNT 285 10^3/uL (150-400)
[2018-08-26] MEDS ORDERED: HYDROmorphONE/DILAUDID 2 MG/ML INJ IVP ONE (03:47)
[2018-08-26 04:25] VITALS: BP 153/77
== END 2018-08-26 05:33 | disposition home or self-care (01) ==
DX: N13.2 Hydronephrosis with renal and ureteral calculous obstruction (principal); E86.9 Volume depletion, unspecified
CPT/HCPCS: 74176; 96361; 96374; 96375; 99285; J1170; J1885; J2405

== ENCOUNTER 2018-09-02 06:48 | Emergency (ER) | payer OTHER, MEDICAID ==
[2018-09-02 06:52] VITALS: BP 141/84
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
== END 2018-09-02 08:39 | disposition left against medical advice (07) ==
DX: M54.5 Low back pain (principal)

== ENCOUNTER 2018-09-02 13:04 | Emergency (ER) | payer OTHER, MEDICAID ==
--- NOTE | 2018-09-02 13:22 | EDPHY ---
HPI/HX/ROS/PE/MDM - Data Points Imaging: I viewed and interpreted images myself Narrative: CHIEF COMPLAINT: "I need a CAT scan, not an x-ray, and something for nausea and something for the pain" HPI: The patient is a 67 y/o female who returns for the second time in the last 5.[address] and medication to treat her lower back pain radiating around to her lower abdomen. I evaluated her earlier today for the same complaint and she left the department without speaking to me and prior to completing the work up. A UA at that time was normal and an abdominal x-ray was pending. She now returns demanding an abdominal CT and pain medication. Her description of her symptoms are the same as during my earlier encounter with her. No urinary symptoms, fever. She states this pain is distinct from prior episodes of kidney stones. She also wants a lab test to look at her heart, though will not elaborate on any cardiac or chest symptoms. REVIEW OF SYSTEMS: A comprehensive 10 system review of systems is otherwise negative aside from elements mentioned in the history of present illness. PMH: Kidney stones SOCIAL HISTORY: Nonsmoker. Unemployed. Lives in [place]. Dog sitting on bed with her. PHYSICAL EXAM: General:Patient is alert, in no acute distress. ENT:Eyes are normal to inspection. ENT inspection normal. Neck: Normal inspection. Full range of motion. Respiratory:No respiratory distress. Breath sounds normal bilaterally. Cardiovascular: Regular rate and rhythm. Strong peripheral pulses. Normal cap refill. Abdomen:The abdomen is nontender to palpation. There are no peritoneal signs. Back: Normal to inspection. No tenderness to palpation. Skin: Normal color. No rash. Warm and dry. Extremities: Normal appearance. Full range of motion. Neuro: Oriented x3. Normal motor function. Normal sensory function. (Antonio Huber) ED Course: This is a 67 y/o female who presents for the second time today with lower back pain radiating into her lower abdomen. She left the department prior to completion of her work up this morning. She returns demanding an abdominal CT and pain and nausea medication. I discussed with her the indications for tests and medications and recommended starting with an IV, labs, abdominal x-ray, and Zofran for her nausea. She consents to this treatment plan. WBC elevated. Reassessed patient and discussed findings. Plan for abdominal CT. 1500: Patient care signed out to Dr. Zuluaga at shift change pending CT results. (Antonio Huber) I took over care of this patient at 3:00 p.m.. Please see above documentation by Dr. Huber for further details. We are waiting the results of his CT abdomen and pelvis. Expected disposition is discharged to home with this study is unremarkable. CT scan of abdomen and pelvis with IV contrast: The previous noted kidney stone on her last study is gone. She has a mild sigmoid diverticulitis. Otherwise this is an unremarkable study. Results were discussed with staff radiologist Dr. Rafal Whitney. 3:40 p.m., I re-evaluated this patient. She is sitting upright on the gurney. She has her dog with her. She appears comfortable. I discussed the results of her CT scan and diagnosis of mild diverticulitis. I discussed plan to start treatment in the emergency department with Flagyl and ciprofloxacin and discharge her to home with prescription for these medications. She is in agreement with this. She feels comfortable going home. Follow-up and return to emergency department precautions were thoroughly reviewed with her. All of her questions were answered. She was discharged from the emergency department in good condition. (Laura Zuluaga) - Data Points Imaging Results: Imaging Impressions Abdomen CT 09/02/18 14:45 Impression: 1. Resolution of previously noted left-sided obstructive uropathy. 2. Suspect uncomplicated sigmoid diverticulitis this superimposed upon rather diffuse colonic diverticulosis. 3. See above report for additional findings. Results called and discussed with Dr. Cowan on 09/02/2018 at 15:32. Laboratory Results: Laboratory Results 09/02/18 14:10 09/02/18 14:10 09/02/18 09/02/18 09/02/18 14:15 14:10 14:10 WBC 13.57 10^3/uL H 10^3/uL (3.80-9.50) RBC 5.12 10^6/uL 10^6/uL (4.18-5.33) Hgb 14.5 g/dL g/dL (12.6-16.3) Hct 44.3 % % (38.0-47.0) MCV 86.5 fL fL (81.5-99.8) MCH 28.3 pg pg (27.9-34.1) MCHC 32.7 g/dL g/dL (32.4-36.7) RDW 13.8 % % (11.5-15.2) Plt Count 270 10^3/uL 10^3/uL (150-400) MPV 9.3 fL fL (8.7-11.7) Neut % (Auto) 78.8 % H % (39.3-74.2) Lymph % (Auto) 13.4 % L % (15.0-45.0) [place] % (Auto) 6.7 % % (4.5-13.0) Eos % (Auto) 0.4 % L % (0.6-7.6) Baso % (Auto) 0.4 % % (0.3-1.7) Nucleat RBC Rel Count 0.0 % % (0.0-0.2) Absolute Neuts (auto) 10.69 10^3/uL H 10^3/uL (1.70-6.50) Absolute Lymphs (auto) 1.82 10^3/uL 10^3/uL (1.00-3.00) Absolute Monos (auto) 0.91 10^3/uL H 10^3/uL (0.30-0.80) Absolute Eos (auto) 0.06 10^3/uL 10^3/uL (0.03-0.40) Absolute Basos (auto) 0.05 10^3/uL 10^3/uL (0.02-0.10) Absolute Nucleated RBC 0.00 10^3/uL 10^3/uL (0-0.01) Immature Gran % 0.3 % % (0.0-1.1) Immature Gran # 0.04 10^3/uL 10^3/uL (0.00-0.10) Sodium 140 mEq/L mEq/L (135-145) Potassium 4.0 mEq/L mEq/L (3.5-5.2) Chloride 108 mEq/L mEq/L (97-110) Carbon Dioxide 22 mEq/l mEq/l (22-31) Anion Gap 10 mEq/L mEq/L (6-14) BUN 20 mg/dL mg/dL (7-23) Creatinine 0.8 mg/dL mg/dL (0.6-1.0) Estimated GFR > 60 Glucose 152 mg/dL H mg/dL (70-100) Calcium 9.8 mg/dL mg/dL (8.5-10.4) POC Troponin I 0.00 ng/mL ng/mL (0.00-0.08) Medications Given: Discontinued Medications Miscellaneous Medication (Icy Hot Lidocaine/Menthol 4%/1% Patch) 1 patch TD EDNOW ONE Stop: 09/02/18 14:15 Last Admin: 09/02/18 14:16 Dose: 1 patch Ondansetron HCl (Zofran) 4 mg IVP EDNOW ONE Stop: 09/02/18 13:35 Last Admin: 09/02/18 14:10 Dose: 4 mg Point of Care Test Results: Chemistry 09/02/18 14:15 POC Troponin I 0.00 ng/mL ng/mL (0.00-0.08) General Time Seen by Provider: 09/02/18 13:17 Initial Vital Signs: Initial Vital Signs Temperature (C) 36.6 C 09/02/18 13:09 Heart Rate 90 09/02/18 13:09 Respiratory Rate 18 09/02/18 13:09 Blood Pressure 147/84 H 09/02/18 13:09 O2 Sat (%) 95 09/02/18 13:09 O2 Delivery Mode Room Air Allergies/Adverse Reactions: No Known Allergies Allergy (Verified 09/02/18 13:11) Home Medications: Medication Instructions Recorded Ranitidine HCl 300 mg PO BID PRN 02/03/16 Aspirin EC [Aspirin EC 81 mg (*)] 81 mg PO DAILY 11/03/17 Valium 10 MG (*) 08/26/18 Ciprofloxacin [Cipro] 500 mg PO BID #8 tab 09/02/18 metroNIDAZOLE [Flagyl 500 mg (*)] 500 mg PO BID #18 tab 09/02/18 Departure - Departure Disposition: Home, Routine, Self-Care Clinical Impression: Diverticulitis Condition: Good Instructions: Diverticulitis (ED) Additional Instructions: Read and follow provided instructions. Follow-up with your primary care physician in 1-2 days for re-evaluation as discussed. Take antibiotics as prescribed for entire course of treatment. Ibuprofen dosin mg every 6 hours with meals for the next 3 days only. Take only as needed for pain. Return to the emergency department for worsening pain, fever, vomiting, rectal bleeding or other serious concerns. Referrals: ANTONIO FRASER [Other] - As per Instructions Prescriptions: Ciprofloxacin [Cipro] 500 mg PO BID #8 tab metroNIDAZOLE [Flagyl 500 mg (*)] 500 mg PO BID #18 tab Report Scribed for: Antonio Huber Report Scribed by: Maliha Cherry Date of Report: 09/02/18 Time of Report: 13:22 Physician Review and Approval Statement: Portions of this note were transcribed by an ED scribe. I personally performed the history, physical exam, and medical decision making; and confirm the accuracy of the information in the transcribed note.
[2018-09-02] MEDS ORDERED: ONDANSETRON 4 MG/2 ML VIAL IVP ONE (13:34)
[2018-09-02] MEDS ORDERED: LIDOCAINE 4%/MENTHOL 1% PATCH TD ONE ×2 (14:13→14:14)
[2018-09-02 14:14] LABS: PLATELET COUNT 270 10^3/uL (150-400)
[2018-09-02] MEDS ORDERED: IOHEXOL 350mgI/ML (OMNIPAQUE) 150 ML BTL IV ONE (14:47)
[2018-09-02] MEDS ORDERED: CIPROFLOXACIN 500 MG TAB PO ONE (15:44)
[2018-09-02] MEDS ORDERED: metroNIDAZOLE 500 MG TAB PO ONE (15:44)
[2018-09-02 15:51] VITALS: BP 170/74
[2018-09-02] MEDS ORDERED: PATCH REMOVAL 1 EA PATCH TD SCH (21:00)
== END 2018-09-02 16:13 | disposition home or self-care (01) ==
DX: K57.92 Diverticulitis of intestine, part unspecified, without perforation or abscess without bleeding (principal)
CPT/HCPCS: 74018; 74177; 96374; 99285; J2405; Q9967; 84484-ER

== ENCOUNTER 2018-12-16 15:51 | Emergency (ER) | payer OTHER, MEDICAID ==
[2018-12-16] MEDS ORDERED: HYDROmorphONE/DILAUDID 2 MG/ML INJ IVP ONE (16:03)
[2018-12-16] MEDS ORDERED: NS 1,000 ML IV ONE (16:03)
--- NOTE | 2018-12-16 16:11 | EDPHY ---
H & P Stated Complaint: r flank/abd pain hx kidney stones Time Seen by Provider: 12/16/18 15:54 HPI/ROS: Chief complaint: Right flank pain, possible kidney stone History of present illness: This is a 68-year-old female with a history of kidney stones who presents to the emergency department for right flank pain, concerned she has another stone. She believes symptoms began yesterday. She first noted blood in her urine. She then developed urinary discomfort. Today she developed right flank pain. Pain has been persistent. She denies any alleviating factors. She denies other associated signs or symptoms including no fevers, no nausea, vomiting or diarrhea. This feels similar to past kidney stones. Review of systems: A 10 point review of systems was obtained and other than described above was negative - Personal History Current Tetanus Diphtheria and Acellular Pertussis (TDAP): Yes - Medical/Surgical History Hx Asthma: No Hx Chronic Respiratory Disease: No Hx Diabetes: No Hx Cardiac Disease: No Hx Renal Disease: No Hx Cirrhosis: No Hx Alcoholism: No Hx HIV/AIDS: No Hx Splenectomy or Spleen Trauma: No Other PMH: PTSD, OCD, kidney stones - Social History Smoking Status: Never smoked - Physical Exam Exam: General Appearance: Alert, appears distressed and uncomfortable. Eyes: Pupils equal and round no pallor or injection. ENT, Mouth: Mucous membranes moist. Respiratory: There are no retractions, lungs are clear to auscultation. Cardiovascular: Regular rate and rhythm. Gastrointestinal: Abdomen is soft and non tender, no masses, bowel sounds normal. Neurological: Alert. Strength and sensation intact and symmetrical. Skin: Warm and dry, no rashes. Musculoskeletal: Neck is supple non tender. Extremities are symmetrical, full range of motion. Psychiatric: Patient is oriented X 3, there is no agitation. Constitutional: Initial Vital Signs Temperature (C) 36.4 C 12/16/18 15:53 Heart Rate 74 12/16/18 15:53 Respiratory Rate 18 12/16/18 15:53 Blood Pressure 156/93 H 12/16/18 15:53 O2 Sat (%) 97 12/16/18 15:53 O2 Delivery Mode Room Air Allergies/Adverse Reactions: No Known Allergies Allergy (Verified 12/16/18 15:51) Home Medications: Medication Instructions Recorded Ranitidine HCl 300 mg PO BID PRN 02/03/16 Aspirin EC [Aspirin EC 81 mg (*)] 81 mg PO DAILY 11/03/17 Valium 10 MG (*) 08/26/18 Cephalexin [Keflex] 500 mg PO TID 7 Days cap 12/16/18 Medical Decision Making - Diagnostics Imaging Results: Imaging Impressions Abdomen/Pelvis CT 12/16/18 16:04 Impression: 1. Mild right hydronephrosis and hydroureter, probably from a tiny stone on the bladder side of the ureterovesical junction or recently passed stone. 2. Diverticulosis sigmoid colon without evidence for diverticulitis. 3. Other chronic findings, as above. Results called and discussed with Rafal Reza PA-C on December 16, 2018 at 1655 hours. Attention: This CT examination is specifically designed to evaluate patients who are clinically suspected of having acute obstructive uropathy. This examination does not use radiographic contrast, and as such, provides only a limited evaluation of the abdomen, pelvis, and retroperitoneum. If there is further clinical suspicion for pathological conditions other than obstructive uropathy, a complete CT evaluation of the abdomen and pelvis utilizing intravenous, oral, and rectal contrast should be considered. Imaging: Discussed imaging studies w/ curb hop Radiologist ED Course/Re-evaluation: Patient seen under the supervision of my secondary supervising physician Dr. Miguel Ruiz. Patient presents for right flank pain. She has a history of ureteral stones and states this feels similar. Vital signs are stable. CT scan is obtained, questionable stone that appears to have passed. She does not appear to have an obstructive uropathy. Urinalysis is obtained, concerning for potential infection. Her pain has been controlled. She is feeling well. She will be placed on Keflex. Home care is discussed. She is to follow up with her primary care doctor for recheck. Return precautions are given. Differential Diagnosis: Included but not limited to ureterolithiasis, pyelonephritis, musculoskeletal pain, - Data Points Laboratory Results: Laboratory Results 12/16/18 16:20 12/16/18 16:20 12/16/18 12/16/18 12/16/18 17:15 16: 16:20 WBC 11.54 10^3/uL H 10^3/uL (3.80-9.50) RBC 5.17 10^6/uL 10^6/uL (4.18-5.33) Hgb 14.3 g/dL g/dL (12.6-16.3) Hct 43.8 % % (38.0-47.0) MCV 84.7 fL fL (81.5-99.8) MCH 27.7 pg L pg (27.9-34.1) MCHC 32.6 g/dL g/dL (32.4-36.7) RDW 13.7 % % (11.5-15.2) Plt Count 319 10^3/uL 10^3/uL (150-400) MPV 9.1 fL fL (8.7-11.7) Neut % (Auto) 66.2 % % (39.3-74.2) Lymph % (Auto) 26.5 % % (15.0-45.0) [place] % (Auto) 5.5 % % (4.5-13.0) Eos % (Auto) 1.0 % % (0.6-7.6) Baso % (Auto) 0.5 % % (0.3-1.7) Nucleat RBC Rel Count 0.0 % % (0.0-0.2) Absolute Neuts (auto) 7.63 10^3/uL H 10^3/uL (1.70-6.50) Absolute Lymphs (auto) 3.06 10^3/uL H 10^3/uL (1.00-3.00) Absolute Monos (auto) 0.64 10^3/uL 10^3/uL (0.30-0.80) Absolute Eos (auto) 0.11 10^3/uL 10^3/uL (0.03-0.40) Absolute Basos (auto) 0.06 10^3/uL 10^3/uL (0.02-0.10) Absolute Nucleated RBC 0.00 10^3/uL 10^3/uL (0-0.01) Immature Gran % 0.3 % % (0.0-1.1) Immature Gran # 0.04 10^3/uL 10^3/uL (0.00-0.10) Sodium 143 mEq/L mEq/L (135-145) Potassium 4.2 mEq/L mEq/L (3.5-5.2) Chloride 105 mEq/L mEq/L (97-110) Carbon Dioxide 23 mEq/l mEq/l (22-31) Anion Gap 15 mEq/L H mEq/L (6-14) BUN 27 mg/dL H mg/dL (7-23) Creatinine 1.0 mg/dL mg/dL (0.6-1.0) Estimated GFR 55 Glucose 108 mg/dL H mg/dL (70-100) Calcium 9.6 mg/dL mg/dL (8.5-10.4) Urine Color YELLOW Urine Appearance HAZY Urine pH 5.0 (5.0-7.5) Ur Specific [place] 1.026 (1.002-1.030) Urine Protein NEGATIVE (NEGATIVE) Urine Ketones NEGATIVE (NEGATIVE) Urine Blood 2+ H (NEGATIVE) Urine Nitrate NEGATIVE (NEGATIVE) Urine Bilirubin NEGATIVE (NEGATIVE) Urine Urobilinogen NEGATIVE EU EU (0.2-1.0) Ur Leukocyte Esterase 2+ H (NEGATIVE) Urine RBC 50-182 /hpf H /hpf (0-3) Urine WBC 25-50 /hpf H /hpf (0-3) Ur Epithelial Cells TRACE /lpf /lpf (NONE-1+) Urine Mucus 2+ /lpf H /lpf (NONE-1+) Urine Glucose NEGATIVE (NEGATIVE) Medications Given: Discontinued Medications Hydromorphone HCl (Dilaudid) 1 mg IVP EDNOW ONE Stop: 12/16/18 16:04 Last Admin: 12/16/18 16:19 Dose: 1 mg Sodium Chloride (Ns) 1,000 mls @ 0 mls/hr IV EDNOW ONE; Wide Open PRN Reason: Protocol Stop: 12/16/18 16:04 Last Admin: 12/16/18 16:19 Dose: 1,000 mls Ondansetron HCl (Zofran) 4 mg IVP EDNOW ONE Stop: 12/16/18 17:07 Last Admin: 12/16/18 17:15 Dose: 4 mg Departure - Departure Disposition: Home, Routine, Self-Care Clinical Impression: Kidney stone on right side UTI (urinary tract infection) Qualifiers: Urinary tract infection type: site unspecified Hematuria presence: with hematuria Qualified Code(s): N39.0 - Urinary tract infection, site not specified ; R31.9 - Hematuria, unspecified; R31.9 - Hematuria, unspecified Condition: Good Instructions: Kidney Stones (ED) Additional Instructions: Follow-up with your primary care doctor for continued evaluation and care Drink plenty of fluids to stay hydrated If symptoms worsen or new symptoms develop return to the emergency department for recheck Referrals: ANTONIO FRASER [Other] - As per Instructions Prescriptions: Cephalexin [Keflex] 500 mg PO TID 7 Days cap
[2018-12-16 16:31] LABS: PLATELET COUNT 319 10^3/uL (150-400)
[2018-12-16] MEDS ORDERED: ONDANSETRON 4 MG/2 ML VIAL IVP ONE (17:06)
[2018-12-16] MEDS ORDERED: CEPHALEXIN 500 MG CAP PO ONE (17:29)
[2018-12-16 17:38] VITALS: BP 145/88
== END 2018-12-16 17:38 | disposition home or self-care (01) ==
DX: N20.0 Calculus of kidney (principal); N39.0 Urinary tract infection, site not specified; Z87.442 Personal history of urinary calculi; E86.9 Volume depletion, unspecified
CPT/HCPCS: 74176; 96361; 96374; 96375; 99285; J1170; J2405